=== PATIENT | male | born 1950 | race Caucasian/White ===

== ENCOUNTER 2016-11-27 00:06 | Emergency (ER) | payer MEDICARE, BC ==
[2016-11-27 00:23] VITALS: BP 186/96
--- NOTE | 2016-11-27 00:57 | EDM.PDOC ---
ED HPI GENERAL MEDICAL PROBLEM - General Chief Complaint: Abdominal Pain Stated Complaint: SEVERE STOMACH PAIN Time Seen by Provider: 11/27/16 00:47 - History of Present Illness INITIAL COMMENTS - FREE TEXT/NARRATIVE: 66-year-old male presents to emergency room with worsening abdominal pain. This pain started several hours ago progressively getting worse it is not associated with any nausea or vomiting or diarrhea he's had worsening heart stools over the last couple of days. Patient denies any fevers or chills. Patient has a history of type 2 diabetes denies any chest pain chest pressure or breathing difficulties or shortness of breath no burning or frequency with urination. Treatments ROTARY DRIER: Reports: Other (see below) Other Treatments ROTARY DRIER: pepto bismol 2330 LLQ Pain Score (Numeric/FACES): 8 - Related Data Allergies Allergy/AdvReac Type Severity Reaction Status Date / Time No Known Allergies Allergy Verified 11/27/16 00:23 Home Meds: Home Meds Aspirin 81 mg PO BRK 11/27/16 [History] Liraglutide [Victoza] 1.8 mg SUBCUT DAILY 11/27/16 [History] atorvaSTATin [Lipitor] 20 mg PO BEDTIME 11/27/16 [History] metFORMIN [Glucophage] 500 mg PO DAILY 11/27/16 [History] Past Medical History HEENT History: Reports: Impaired Vision Cardiovascular History: Reports: High Cholesterol Endocrine/Metabolic History: Reports: Diabetes, Type II Social & Family History - Family History Family Medical History: Noncontributory - Tobacco Use Smoking Status *Q: Never Smoker Second Hand Smoke Exposure: No - Caffeine Use Caffeine Use: Reports: Coffee - Recreational Drug Use Recreational Drug Use: No ED ROS GENERAL - Review of Systems Review Of Systems: See Below Constitutional: Reports: No Symptoms Respiratory: Reports: No Symptoms Cardiovascular: Reports: No Symptoms GI/Abdominal: Reports: Abdominal Pain, Constipation. Denies: Diarrhea, Nausea, Vomiting Neurological: Reports: No Symptoms ED EXAM, GI/ABD - Physical Exam Exam: See Below Exam Limited By: No Limitations General Appearance: Alert, No Apparent Distress Head: Atraumatic, Normocephalic Neck: Normal Inspection, Supple, Non-Tender, Full Range of Motion. No: Lymphadenopathy (L), Lymphadenopathy (R) Respiratory/Chest: No Respiratory Distress, Lungs Clear, Normal Breath Sounds Cardiovascular: Regular Rate, Rhythm, No Edema, No Murmur GI/Abdominal: Normal Bowel Sounds, Soft, Other (He has some vague discomfort doesn't seem to localize no rebound or guarding noted no rigidity) Back Exam: Normal Inspection. No: CVA Tenderness (L), CVA Tenderness (R) Course - Vital Signs Last Recorded V/S: Last Vital Signs Temp 36.3 C 11/27/16 00:19 Pulse 100 11/27/16 00:19 Resp 18 11/27/16 00:19 BP 186/96 H 11/27/16 00:19 Pulse Ox 100 11/27/16 00:19 - Orders/Labs/Meds Orders: Active Orders 24 hr Category Date Time Status Abdomen 2V AP Flat Upright [CR] Stat Exams 11/27/16 00:28 Taken Labs: Laboratory Tests 11/27/16 11/27/16 11/27/16 Range/Units 00:45 00:45 03:24 WBC 11.74 H (4.23-9.07) K/mm3 RBC 4.09 L (4.63-6.08) M/mm3 Hgb 13.5 L (13.7-17.5) gm/L Hct 38.6 L (40.1-51.0) % MCV 94.4 H (79.0-92.2) fl MCH 33.0 H (25.7-32.2) pg MCHC 35.0 (32.2-35.5) g/dl RDW Std Deviation 42.9 (35.1-43.9) fL Plt Count 276 (163-337) K/mm3 MPV 9.8 (9.4-12.3) fl Neut % (Auto) Cancelled Lymph % (Auto) Cancelled [place] % (Auto) Cancelled Eos % (Auto) Cancelled Baso % (Auto) Cancelled Neut # (Auto) Cancelled Lymph # (Auto) Cancelled [place] # (Auto) Cancelled Eos # (Auto) Cancelled Baso # (Auto) Cancelled Neutrophils % (Manual) 76 H (40-60) % Band Neutrophils % 0 (0-10) % Lymphocytes % (Manual) 21 (20-40) % Atypical Lymphs % 0 % Monocytes % (Manual) 3 (2-10) % Eosinophils % (Manual) 0 L (0.8-7.0) % Basophils % (Manual) 0 L (0.2-1.2) Manual Slide Review Cancelled Platelet Estimate Adequate RBC Morph Comment Normal Sodium 140 (136-145) mEq/L Potassium 3.7 (3.5-5.1) mEq/L Chloride 104 (98-107) mEq/L Carbon Dioxide 22 (21-32) mEq/L Anion Gap 17.7 H (5-15) BUN 24 H (7-18) mg/dL Creatinine 1.5 H (0.7-1.3) mg/dL Est Cr Clr Drug Dosing 50.69 mL/min Estimated GFR (MDRD) 47 (>60) mL/min BUN/Creatinine Ratio 16.0 (14-18) Glucose 235 H (80-115) mg/dL Calcium 9.2 (8.5-10.1) mg/dL Total Bilirubin 0.5 (0.2-1.0) mg/dL AST 30 (15-37) U/L ALT 46 (16-63) U/L Alkaline Phosphatase 101 (46-116) U/L Total Protein 7.8 (6.4-8.2) g/dl Albumin 4.2 (3.4-5.0) g/dl Globulin 3.6 gm/dL Albumin/Globulin Ratio 1.2 (1-2) Amylase 140 H (25-115) U/L Lipase 724 H (73-393) U/L Urine Color Yellow (Yellow) Urine Appearance Clear (Clear) Urine pH 7.0 (5.0-8.0) Ur Specific [place] 1.020 (1.005-1.030) Urine Protein Negative (Negative) Urine Glucose (UA) 1+ H (Negative) Urine Ketones 1+ H (Negative) Urine Occult Blood 2+ H (Negative) Urine Nitrite Negative (Negative) Urine Bilirubin Negative (Negative) Urine Urobilinogen 0.2 (0.2-1.0) Ur Leukocyte Esterase Negative (Negative) Urine RBC 5-10 H (0-5) /hpf Urine WBC 0-5 (0-5) /hpf Ur Epithelial Cells 0-5 (0-5) /hpf Urine Bacteria Few (FEW) /hpf Urine Mucus Not seen (FEW) /hpf - Re-Assessments/Exams Free Text/Narrative Re-Assessment/Exam: 11/27/16 03:20 Patient is feeling better labs reviewed urinalysis is not been collected yet however the patient feels like he can go. Will collect a urine at this time anticipate discharge soon of concern on his labs is mildly elevated lipase and amylase. The patient's abdominal pain is improving his pain is lower abdominal. Discussed this with the patient we will hold off on CAT scanning at this point anticipate the patient going on a clear liquid diet as an outpatient and following up with his regular provider back home in a couple of days. Patient did have a KUB and upright obtained which showed some stool in the right colon not excessive in the transverse or descending colon and no large accumulation in the rectum. 11/27/16 04:58 Still waiting on the urine 11/27/16 06:03 Urinalysis is finally back he has some microscopic hematuria. No signs of infection. His pain seems to vary from side to side stays in the lower quadrants no flank discomfort. However did bring up CT scanning again the patient would like to hold off he does agree to return to the emergency room with any questions or problems or worsening symptoms. Departure - Departure Time of Disposition: 06:05 Disposition: Home, Self-Care 01 Clinical Impression: Abdominal pain, Microscopic hematuria, Elevated amylase and lipase - Discharge Information Forms: ED Department Discharge Additional Instructions: Return to the emergency room with any questions or problems or any worsening symptoms. Return in 12 hours if not improving sooner if getting worse. Clear liquid diet until you've been reevaluated by your regular physician. Follow-up with your regular physician as soon as you get home on Tuesday. - My Orders Last 24 Hours: My Active Orders 11/27/16 00:28 Abdomen 2V AP Flat Upright [CR] Stat - Assessment/Plan Last 24 Hours: My Active Orders 11/27/16 00:28 Abdomen 2V AP Flat Upright [CR] Stat
--- NOTE | 2016-11-29 14:39 | CR ---
Abdomen: Supine and upright views of the abdomen were obtained. Bowel gas pattern is normal. Calcifications within pelvis likely represent phleboliths. Mild degenerative change is noted within the spine. No free air is seen. Impression: 1. Nothing acute is identified on two-view abdominal x-ray. Diagnostic code #2
== END 2016-11-27 06:17 | disposition home or self-care (01) ==
LOC: JD.ED 00:06
DX: R31.29 Other microscopic hematuria (principal); R10.32 Left lower quadrant pain; R74.8 Abnormal levels of other serum enzymes; H54.7 Unspecified visual loss; E11.9 Type 2 diabetes mellitus without complications; E78.00 Pure hypercholesterolemia, unspecified; Z79.84 Long term (current) use of oral hypoglycemic drugs; Z79.82 Long term (current) use of aspirin; Z79.899 Other long term (current) drug therapy
CPT/HCPCS: 36415; 74020; 74020-26; 80053; 81001; 82150; 83690; 85025; 99282; 99284